=== PATIENT | male | born 1995 | race Native Hawaiian/Other Pacific Islander ===

== ENCOUNTER 2017-11-08 10:59 | Inpatient (IN) | payer SELFPAY ==
[~2017-11-08] VITALS: Ht 172.7 cm; Wt 66.5 kg
[2017-11-08] VITALS (10 sets, daily range): BP systolic 94–151; BP diastolic 52–83; PULSE 86–103; RESP 14–20; TEMP 97.8–103.1; O2SAT 96–100
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
[2017-11-08] MEDS ORDERED: IOHEXOL 350 MG/ML 10 ML VIAL (for RAD DIAG) IVCONTRAST ONE ×2 (11:26→17:47)
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
[2017-11-08 11:50] LABS: AUTOMATED NEUTROPHIL # 6.9 TH/MM3 (1.8-7.7); BASOPHIL # 0.1 TH/MM3 (0-0.2); BASOPHIL % 0.5 % (0.0-2.0); EOSINOPHIL # 0.1 TH/MM3 (0-0.4); EOSINOPHIL % 0.6 % (0.0-4.0); HEMATOCRIT 39.6 % (39.0-51.0); HEMOGLOBIN 12.8 GM/DL (13.0-17.0); LYMPH % 30.6 % (9.0-44.0); LYMPHOCYTE # 3.4 TH/MM3 (1.0-4.8); MEAN CELL VOLUME 61.4 FL (80.0-100.0); MEAN CORPUSCULAR HEMOGLOBIN 19.9 PG (27.0-34.0); MEAN CORPUSCULAR HGB CONC 32.4 % (32.0-36.0); MEAN PLATELET VOLUME 8.5 FL (7.0-11.0); MONO % 5.3 % (0.0-8.0); MONOCYTE # 0.6 TH/MM3 (0-0.9); PLATELET COUNT 265 TH/MM3 (150-450); RED BLOOD COUNT 6.45 MIL/MM3 (4.50-5.90); RED CELL DISTRIBUTION WIDTH 15.2 % (11.6-17.2)
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
[2017-11-08] MEDS ORDERED: ENALAPRILAT 1.25 MG/ML VIAL IV PUSH PRN (12:00)
[2017-11-08] MEDS ORDERED: MAGNESIUM HYDROXIDE SUSP 30 ML CUP PO PRN (12:00)
[2017-11-08] MEDS ORDERED: SODIUM CHLORIDE 0.9% FLUSH 10 ML FLUSH IV FLUSH PRN ×2 (12:00→21:00)
[2017-11-08] MEDS ORDERED: ONDANSETRON HCL 4 MG/2 ML VIAL IV PUSH PRN ×2 (12:00→21:00)
[2017-11-08] MEDS ORDERED: ACETAMINOPHEN/HYDROcodone 325 MG/5 MG TAB PO PRN (12:00)
[2017-11-08 12:05] LABS: INTERNATIONAL NORMALIZED RATIO 1.1 RATIO; PROTHROMBIN TIME - PATIENT 11.6 SEC (9.8-11.6)
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
--- NOTE | 2017-11-08 13:17 | PD ---
Physical Exam Date Seen by Provider: Nov 08, 2017 Time Seen by Provider: 13:11 Data Data Last Documented VS Vital Signs Date Time Temp Pulse Resp B/P (MAP) Pulse Ox O2 Delivery O2 Flow Rate FiO2 11/08/17 11:40 97.8 103 16 124/83 (97) 100 Room Air Orders Orders I-Stat Profile (11/08/17 11:02) Complete Blood Count With Diff (11/08/17 11:02) Prothrombin Time / Inr (Pt) (11/08/17 11:02) Act Partial Throm Time (Ptt) (11/08/17 11:02) Type And Screen (11/08/17 11:02) Chest, Single Ap (11/08/17 11:02) Pelvis, Ap Only (Routine) (11/08/17 11:02) Ct Brain W/O Iv Contrast(Rout) (11/08/17 11:02) Ct Abd/Pel W Iv Contrast(Rout) (11/08/17 11:02) Ct Thorax/ Chest W Iv Contrast (11/08/17 11:02) Ct Facial Bones W/O Iv Cont (11/08/17 11:02) Iv Access Insert/Monitor (11/08/17 11:02) Ecg Monitoring (11/08/17 11:02) Oximetry (11/08/17 11:02) Oxygen Administration (11/08/17 11:02) Ct Cerv Spine W/O Contrast (11/08/17 ) Iohexol 350 Inj (Omnipaque 350 Inj) (11/08/17 11:26) Admit Order (Ed Use Only) (11/08/17 11:44) Labs Laboratory Tests Test 11/08/17 11:15 White Blood Count 11.0 TH/MM3 Red Blood Count 6.45 MIL/MM3 Hemoglobin 12.8 GM/DL Bedside Hemoglobin 13.9 G/DL Hematocrit 39.6 % Bedside Hematocrit 41.0 % Mean Corpuscular Volume 61.4 FL Mean Corpuscular Hemoglobin 19.9 PG Mean Corpuscular Hemoglobin Concent 32.4 % Red Cell Distribution Width 15.2 % Platelet Count 265 TH/MM3 Mean Platelet Volume 8.5 FL Neutrophils (%) (Auto) 63.0 % Lymphocytes (%) (Auto) 30.6 % Monocytes (%) (Auto) 5.3 % Eosinophils (%) (Auto) 0.6 % Basophils (%) (Auto) 0.5 % Neutrophils # (Auto) 6.9 TH/MM3 Lymphocytes # (Auto) 3.4 TH/MM3 Monocytes # (Auto) 0.6 TH/MM3 Eosinophils # (Auto) 0.1 TH/MM3 Basophils # (Auto) 0.1 TH/MM3 CBC Comment DIFF FINAL Differential Comment Prothrombin Time 11.6 SEC Prothromb Time International Ratio 1.1 RATIO Activated Partial Thromboplast Time 22.0 SEC Bedside Sodium 140 MMOL/L Bedside Potassium 3.9 MMOL/L Bedside Chloride 104 MMOL/L Bedside Blood Urea Nitrogen 13 MG/DL Bedside Creatinine 1.3 MG/DL Bedside Glucose 114 MG/DL MDM Supervised Visit with LUAN: No Narrative Course I was asked to evaluate this patient's multiple lacerations. The patient was initially seen by Dr. Das. Please see her note for full H&P. On my exam the patient has 4 lacerations of the lower face and chin. The largest is approximately 2 cm , coin shaped. There is a 5 cm laceration on the palmar aspect base of the left thumb. The patient is only intermittently responsive. He does withdraw his thumb from pain but I'm unable to fully assess his range of motion or sensation. Laceration repair 5 was performed. Please see my procedure note for details. Thumb pica was placed on my left thumb. Hand consult placed with Dr. Hernández. Dr. Das retains care of this patient. Please see her note for disposition. Procedures Procedure Narrative LACERATION LOCATION: Yan aspect base of left thumb LENGTH: 6 cm NUMBER OF STITCHES/GREER: 7 REPAIR: The area of the laceration was prepped with Betadine and sterilely draped. Digital block was performed with 1% lidocaine. The wound was copiously irrigated and explored without evidence of foreign body, tendon injury or neurovascular injury. The wound was closed using 4-0 Prolene. This was a single layer repair. A sterile dressing was applied. The patient was advised to keep the dressing clean and dry. Patient tolerated the procedure well. LACERATION LOCATION: Left cheek LENGTH: 2 cm NUMBER OF STITCHES/GREER: 4 REPAIR: The area of the laceration was prepped with Betadine and sterilely draped. The laceration was infiltrated with 1% lidocaine. The wound was copiously irrigated and explored without evidence of foreign body, tendon injury or neurovascular injury. The wound was closed using 5-0 Prolene. This was a single layer repair. A sterile dressing was applied. The patient was advised to keep the dressing clean and dry. Patient tolerated the procedure well. LACERATION LOCATION: Below the midline lower lip LENGTH: 3 cm NUMBER OF STITCHES/GREER: 5 REPAIR: The area of the laceration was prepped with Betadine and sterilely draped. The laceration was infiltrated with 1% lidocaine. The wound was copiously irrigated and explored without evidence of foreign body, tendon injury or neurovascular injury. The wound was closed using 5-0 Prolene. This was a single layer repair. A sterile dressing was applied. The patient was advised to keep the dressing clean and dry. Patient tolerated the procedure well. LACERATION LOCATION: Right lateral to the midline mandible LENGTH: 2 cm NUMBER OF STITCHES/GREER: 3 REPAIR: The area of the laceration was prepped with Betadine and sterilely draped. The laceration was infiltrated with 1% lidocaine. The wound was copiously irrigated and explored without evidence of foreign body, tendon injury or neurovascular injury. The wound was closed using 5-0 Prolene. This was a single layer repair. A sterile dressing was applied. The patient was advised to keep the dressing clean and dry. Patient tolerated the procedure well. LACERATION LOCATION: Left lateral of the midline mandible LENGTH: 1 cm NUMBER OF STITCHES/GREER: 2 REPAIR: The area of the laceration was prepped with Betadine and sterilely draped. The laceration was infiltrated with 1% lidocaine. The wound was copiously irrigated and explored without evidence of foreign body, tendon injury or neurovascular injury. The wound was closed using 5-0 Prolene. This was a single layer repair. A sterile dressing was applied. The patient was advised to keep the dressing clean and dry. Patient tolerated the procedure well. Diagnosis Primary Impression: Pulmonary contusion Qualified Codes: S27.329A - Contusion of lung, unspecified, initial encounter Additional Impressions: Anisocoria Altered mental status Qualified Codes: R41.82 - Altered mental status, unspecified Face lacerations Qualified Codes: S01.81XA - Laceration without foreign body of other part of head, initial encounter Laceration of thumb, left Qualified Codes: S61.112A - Laceration without foreign body of left thumb with damage to nail, initial encounter Scripts No Active Prescriptions or Reported Meds Brielle Shipley Nov 08, 2017 13:17
[2017-11-08] MEDS ORDERED: ACETAMINOPHEN 325 MG TAB PO ONE (13:30)
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
[2017-11-08] MEDS ORDERED: Post-op Orders (for Pharmacy) XX ONE (21:00)
[2017-11-08] MEDS: SODIUM CHLOR 0.9% 1000 ML INJ 1,000 ML IV SCH (21:00)
[2017-11-08] MEDS: DOCUSATE SODIUM 100 MG CAP PO SCH (21:00)
[2017-11-08] MEDS ORDERED: NALOXONE HCL 0.4 MG/ML AMP IV PUSH PRN (21:00)
[2017-11-08] MEDS: SODIUM CHLORIDE 0.9% FLUSH 10 ML FLUSH IV FLUSH SCH (21:00)
[2017-11-08] MEDS: BACITRACIN TOP OINT 15 GM TUBE TOP SCH (21:00)
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
[2017-11-09] VITALS: BP 108/62; PULSE 71; RESP 18; TEMP 98.7; O2SAT 96
[2017-11-09 04:00] VITALS: BP 108/56; PULSE 82; RESP 18; TEMP 100.9; O2SAT 98
[2017-11-09] MEDS: SODIUM CHLOR 0.9% 1000 ML INJ 1,000 ML IV SCH (04:31)
--- NOTE | 2017-11-09 07:05 | RADRPT ---
EXAM DATE/TIME: 11/09/2017 06:42 [facility] COMPARISON: CT THORAX W CONTRAST, November 08, 2017, 11:20. CHEST SINGLE AP, November 08, 2017, 11:00. INDICATIONS : Pulmonary contusion. MEDICAL HISTORY : None. SURGICAL HISTORY : None. ENCOUNTER: Initial ACUITY: 1 day PAIN SCORE: Non-responsive. LOCATION: Bilateral chest FINDINGS: Portable AP view of the chest demonstrates a normal-sized cardiac silhouette. No effusion, consolidat ion, or pneumothorax is visualized. The bones and soft tissues demonstrate no acute abnormality. CONCLUSION: No acute cardiopulmonary abnormality is identified. Andrews Fields MD on November 09, 2017 at 7:03 Board Certified Radiologist. This report was verified electronically.
[2017-11-09 07:20] LABS: AUTOMATED NEUTROPHIL # 7.4 TH/MM3 (1.8-7.7); BASOPHIL % 0.2 % (0.0-2.0); EOSINOPHIL % 0.1 % (0.0-4.0); HEMATOCRIT 33.5 % (39.0-51.0); HEMOGLOBIN 10.9 GM/DL (13.0-17.0); LYMPH % 14.7 % (9.0-44.0); LYMPHOCYTE # 1.4 TH/MM3 (1.0-4.8); MEAN CELL VOLUME 60.5 FL (80.0-100.0); MEAN CORPUSCULAR HEMOGLOBIN 19.7 PG (27.0-34.0); MEAN CORPUSCULAR HGB CONC 32.6 % (32.0-36.0); MEAN PLATELET VOLUME 8.6 FL (7.0-11.0); MONO % 7.5 % (0.0-8.0); MONOCYTE # 0.7 TH/MM3 (0-0.9); NEUT % 77.5 % (16.0-70.0); PLATELET COUNT 186 TH/MM3 (150-450); RED BLOOD COUNT 5.55 MIL/MM3 (4.50-5.90); RED CELL DISTRIBUTION WIDTH 14.7 % (11.6-17.2); WHITE BLOOD COUNT 9.6 TH/MM3 (4.0-11.0)
[2017-11-09 07:30] LABS: BICARBONATE 24.1 MEQ/L (21.0-32.0); CALCIUM 8.2 MG/DL (8.5-10.1); CREATININE 1.1 MG/DL (0.60-1.30)
[2017-11-09 08:00] VITALS: BP 118/68; PULSE 81; RESP 16; TEMP 99.5; O2SAT 100
[2017-11-09] MEDS: MAGNESIUM HYDROXIDE SUSP 30 ML CUP PO SCH ×2 (09:00→20:52)
[2017-11-09] MEDS: DOCUSATE SODIUM 100 MG CAP PO SCH ×2 (09:00→20:52)
[2017-11-09] MEDS: SODIUM CHLORIDE 0.9% FLUSH 10 ML FLUSH IV FLUSH SCH ×2 (09:45→20:52)
[2017-11-09] MEDS: BACITRACIN TOP OINT 15 GM TUBE TOP SCH (09:45)
[2017-11-09 12:00] VITALS: BP 120/68; PULSE 80; RESP 17; TEMP 99.7; O2SAT 97
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
[2017-11-09 16:00] VITALS: BP 126/72; PULSE 102; RESP 17; TEMP 99.6; O2SAT 99
[2017-11-09] MEDS ORDERED: MAGN30S PO (17:25)
[2017-11-09] MEDS ORDERED: DOCU1CAP39 PO (17:25)
[2017-11-09 20:00] VITALS: BP 116/66; PULSE 108; RESP 20; TEMP 99.8; O2SAT 98
[2017-11-10] VITALS: BP 111/55; PULSE 84; RESP 18; TEMP 99.3; O2SAT 97
[2017-11-10 04:00] VITALS: BP 111/64; PULSE 76; RESP 18; TEMP 98.8; O2SAT 98
[2017-11-10 04:39] LABS: AUTOMATED NEUTROPHIL # 6.5 TH/MM3 (1.8-7.7); BASOPHIL % 0.4 % (0.0-2.0); EOSINOPHIL # 0.1 TH/MM3 (0-0.4); EOSINOPHIL % 0.8 % (0.0-4.0); HEMATOCRIT 34.9 % (39.0-51.0); HEMOGLOBIN 11.1 GM/DL (13.0-17.0); LYMPH % 21.2 % (9.0-44.0); MEAN CELL VOLUME 60.9 FL (80.0-100.0); MEAN CORPUSCULAR HEMOGLOBIN 19.5 PG (27.0-34.0); MEAN CORPUSCULAR HGB CONC 31.9 % (32.0-36.0); MEAN PLATELET VOLUME 7.5 FL (7.0-11.0); MONO % 7.7 % (0.0-8.0); MONOCYTE # 0.7 TH/MM3 (0-0.9); NEUT % 69.9 % (16.0-70.0); PLATELET COUNT 187 TH/MM3 (150-450); RED BLOOD COUNT 5.72 MIL/MM3 (4.50-5.90); RED CELL DISTRIBUTION WIDTH 14.9 % (11.6-17.2); WHITE BLOOD COUNT 9.4 TH/MM3 (4.0-11.0)
[2017-11-10 05:03] LABS: BICARBONATE 28.1 MEQ/L (21.0-32.0); CALCIUM 8.5 MG/DL (8.5-10.1); CREATININE 1.11 MG/DL (0.60-1.30)
[2017-11-10 08:00] VITALS: BP 115/64; PULSE 77; RESP 16; TEMP 99.3; O2SAT 99
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
[2017-11-10] MEDS: DOCUSATE SODIUM 100 MG CAP PO SCH ×2 (10:55→20:11)
[2017-11-10] MEDS: MAGNESIUM HYDROXIDE SUSP 30 ML CUP PO SCH ×2 (10:55→20:11)
[2017-11-10] MEDS: SODIUM CHLORIDE 0.9% FLUSH 10 ML FLUSH IV FLUSH SCH ×2 (10:56→20:11)
[2017-11-10] MEDS: BACITRACIN TOP OINT 15 GM TUBE TOP SCH ×2 (10:57→20:11)
[2017-11-10 12:00] VITALS: BP 130/75; PULSE 101; RESP 17; TEMP 99.2; O2SAT 100
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
[2017-11-10 16:00] VITALS: BP 135/71; PULSE 101; RESP 16; TEMP 100.1; O2SAT 98
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
[2017-11-10 20:00] VITALS: BP 131/79; PULSE 82; RESP 15; TEMP 98; O2SAT 100
[2017-11-11] VITALS: BP 118/64; PULSE 61; RESP 15; TEMP 98.1; O2SAT 98
[2017-11-11 04:00] VITALS: BP 119/64; PULSE 62; RESP 15; TEMP 98; O2SAT 98
[2017-11-11 08:00] VITALS: BP 122/68; PULSE 70; RESP 18; TEMP 99.9; O2SAT 100
[2017-11-11] MEDS ORDERED: INFLUENZA VIRUS VACCINE (QUADRIVALENT) 0.5 ML SYR IM ONE (10:00)
[2017-11-11] MEDS ORDERED: PNEUMOCOCCAL POLYVALENT INJ 25 MCG/0.5 ML SYR IM ONE (10:00)
[2017-11-11] MEDS: DOCUSATE SODIUM 100 MG CAP PO SCH ×2 (10:50→19:22)
[2017-11-11] MEDS: MAGNESIUM HYDROXIDE SUSP 30 ML CUP PO SCH ×2 (10:50→19:22)
[2017-11-11] MEDS: SODIUM CHLORIDE 0.9% FLUSH 10 ML FLUSH IV FLUSH SCH ×2 (10:53→19:22)
[2017-11-11] MEDS: BACITRACIN TOP OINT 15 GM TUBE TOP SCH ×2 (10:54→19:22)
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
[2017-11-11 16:00] VITALS: BP 118/60; PULSE 85; RESP 18; TEMP 100.3; O2SAT 100
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
[2017-11-11 21:41] VITALS: BP 119/69; PULSE 60; RESP 18; TEMP 98; O2SAT 98
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
[2017-11-12 00:54] VITALS: BP 127/68; PULSE 79; RESP 18; TEMP 99.7; O2SAT 97
[2017-11-12 08:00] VITALS: BP 111/68; PULSE 79; RESP 18; TEMP 99.5; O2SAT 99
[2017-11-12] MEDS: DOCUSATE SODIUM 100 MG CAP PO SCH ×2 (08:32→21:00)
[2017-11-12] MEDS: MAGNESIUM HYDROXIDE SUSP 30 ML CUP PO SCH ×2 (08:32→21:00)
[2017-11-12] MEDS: BACITRACIN TOP OINT 15 GM TUBE TOP SCH ×2 (08:32→20:30)
[2017-11-12] MEDS: SODIUM CHLORIDE 0.9% FLUSH 10 ML FLUSH IV FLUSH SCH ×2 (08:32→20:30)
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
[2017-11-12] MEDS ORDERED: ACET650S PO (10:51)
[2017-11-12] MEDS ORDERED: HYDR-3516 PO (10:51)
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
[2017-11-12 12:00] VITALS: BP 105/74; PULSE 99; RESP 14; TEMP 98.6; O2SAT 99
[2017-11-12 16:00] VITALS: BP 117/60; PULSE 83; RESP 15; TEMP 100.4; O2SAT 99
[2017-11-12 18:34] VITALS: TEMP 101.5
[2017-11-12] MEDS: ACETAMINOPHEN 650 MG/20.3 ML UDC PO PRN (18:42)
[2017-11-12 20:00] VITALS: BP 123/71; PULSE 93; RESP 17; TEMP 98.1; O2SAT 97
[2017-11-13] VITALS: BP 117/62; PULSE 62; RESP 17; TEMP 96.3; O2SAT 98
[2017-11-13] MEDS ORDERED: WALKER WHEELS/F1 MIS (07:10)
[2017-11-13 08:00] VITALS: BP 109/69; PULSE 68; RESP 16; TEMP 98.4; O2SAT 100
[2017-11-13] MEDS: SODIUM CHLORIDE 0.9% FLUSH 10 ML FLUSH IV FLUSH SCH ×2 (08:52→21:00)
[2017-11-13] MEDS: MAGNESIUM HYDROXIDE SUSP 30 ML CUP PO SCH ×2 (08:52→21:00)
[2017-11-13] MEDS: BACITRACIN TOP OINT 15 GM TUBE TOP SCH ×2 (08:52→21:00)
[2017-11-13] MEDS: DOCUSATE SODIUM 100 MG CAP PO SCH ×2 (08:52→21:00)
[2017-11-13 12:00] VITALS: BP 106/65; PULSE 69; RESP 14; TEMP 95.9; O2SAT 99
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
[2017-11-13 16:00] VITALS: BP 114/71; PULSE 73; RESP 16; TEMP 97.7; O2SAT 100
[2017-11-13 20:00] VITALS: BP 120/70; PULSE 92; RESP 18; TEMP 96.5; O2SAT 100
[2017-11-13] MEDS: ACETAMINOPHEN 650 MG/20.3 ML UDC PO PRN (21:42)
[2017-11-14] VITALS: BP 115/66; PULSE 63; RESP 17; TEMP 98; O2SAT 100
[2017-11-14 08:00] VITALS: BP 104/64; PULSE 58; RESP 14; TEMP 98.5; O2SAT 100
[2017-11-14] MEDS: MAGNESIUM HYDROXIDE SUSP 30 ML CUP PO SCH ×2 (09:38→21:00)
[2017-11-14] MEDS: DOCUSATE SODIUM 100 MG CAP PO SCH ×2 (09:38→21:00)
[2017-11-14] MEDS: SODIUM CHLORIDE 0.9% FLUSH 10 ML FLUSH IV FLUSH SCH ×2 (09:41→21:00)
[2017-11-14] MEDS: BACITRACIN TOP OINT 15 GM TUBE TOP SCH ×2 (09:42→21:00)
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
[2017-11-14 12:00] VITALS: BP 96/59; PULSE 68; RESP 16; TEMP 97.2; O2SAT 100
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
[2017-11-14 16:00] VITALS: BP 131/91; PULSE 82; RESP 16; TEMP 96.7; O2SAT 99
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
[2017-11-14 20:00] VITALS: BP 108/67; PULSE 68; RESP 16; TEMP 97.7; O2SAT 100
[2017-11-15] VITALS: BP 98/57; PULSE 50; RESP 17; TEMP 96.8; O2SAT 99
[2017-11-15 08:00] VITALS: BP 107/64; PULSE 73; RESP 17; TEMP 97.2; O2SAT 97
[2017-11-15] MEDS: SODIUM CHLORIDE 0.9% FLUSH 10 ML FLUSH IV FLUSH SCH ×2 (08:43→21:04)
[2017-11-15] MEDS: BACITRACIN TOP OINT 15 GM TUBE TOP SCH ×2 (09:00→21:00)
[2017-11-15 12:00] VITALS: BP_SYST 107; BP_SYST 99; BP_DIAS 57; BP_DIAS 64; PULSE 64; PULSE 73; RESP 16; RESP 17; TEMP 97.2; TEMP 98.9; O2SAT 97
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
[2017-11-15 16:00] VITALS: BP 129/83; PULSE 85; RESP 16; TEMP 96.8; O2SAT 100
[2017-11-15 20:00] VITALS: BP 123/69; PULSE 93; RESP 16; TEMP 98.6; O2SAT 99
[2017-11-15] MEDS: DOCUSATE SODIUM 100 MG CAP PO SCH (21:00)
[2017-11-15] MEDS: MAGNESIUM HYDROXIDE SUSP 30 ML CUP PO SCH (21:00)
[2017-11-16] VITALS: BP 113/73; PULSE 78; RESP 16; TEMP 97.6; O2SAT 98
[2017-11-16 08:00] VITALS: BP 124/77; PULSE 81; RESP 16; TEMP 98.1; O2SAT 99
[2017-11-16] MEDS: DOCUSATE SODIUM 100 MG CAP PO SCH (10:01)
[2017-11-16] MEDS: MAGNESIUM HYDROXIDE SUSP 30 ML CUP PO SCH (10:01)
[2017-11-16] MEDS: SODIUM CHLORIDE 0.9% FLUSH 10 ML FLUSH IV FLUSH SCH (10:02)
[2017-11-16] MEDS: BACITRACIN TOP OINT 15 GM TUBE TOP SCH (10:02)
[2017-11-16 12:00] VITALS: BP 119/67; PULSE 80; RESP 16; TEMP 97.1; O2SAT 98
[2017-11-16 16:00] VITALS: BP 119/68; PULSE 87; RESP 17; TEMP 96.6; O2SAT 100
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
== END 2017-11-16 17:01 | DRG 965 ==
LOC: NEPI 10:59 → NEDA 11:46 → EDBD 11:46 → N07B 17:56 → OBSVTOIN 11-11 15:00
PROVIDERS: ADMIT Surgery; ATTEND Surgery
PROC: 0HQGXZZ Repair Left Hand Skin, External Approach (ICD-10-PCS; principal; 2017-11-11)
PROC: 0HQ1XZZ Repair Face Skin, External Approach (ICD-10-PCS; 2017-11-11)
DX: S06.2X9A Diffuse traumatic brain injury with loss of consciousness of unspecified duration, initial encounter (principal); S27.321A Contusion of lung, unilateral, initial encounter; H49.02 Third [oculomotor] nerve palsy, left eye; H49.22 Sixth [abducent] nerve palsy, left eye; S01.411A Laceration without foreign body of right cheek and temporomandibular area, initial encounter; H02.402 Unspecified ptosis of left eyelid; H57.02 Anisocoria; S01.412A Laceration without foreign body of left cheek and temporomandibular area, initial encounter; S61.012A Laceration without foreign body of left thumb without damage to nail, initial encounter; R40.2422 Glasgow coma scale score 9-12, at arrival to emergency department; S01.511A Laceration without foreign body of lip, initial encounter; Z23 Encounter for immunization; V95.9XXA Unspecified aircraft accident injuring occupant, initial encounter
CPT/HCPCS: 12002; 12015; 70450; 70486; 70496; 70498; 70551; 71045; 71260; 72125; 72170; 73130; 74177; 80048; 85025; 85610; 85730; 86850; 86900; 86901; 90686; 90732; 94150; 95819; 96360; 96361; 99291; G0378; G0390; J7030; L3808; Q2038; Q9967